=== PATIENT | female | born 1985 | race Two or more races ===

== ENCOUNTER → 2024-09-18 | Emergency (ER) | payer OTHER ==
[~2024-09-18] VITALS: Ht 152.4 cm; Wt 86.2 kg
[~2024-09-18] MED LIST: BENADRYL ALLERG25 MG PO; BENADRYL ALLERG50 MG PO; DIPHENHYDRAMINE HCL 50 MG/ML VIAL 1ML IV ONE; DIPHENHYDRAMINE HCL 50 MG/ML VIAL 1ML ONE; MEDROLPACK PO; METHYLPREDNISOLONE SOD SUCC 125 MG VIAL IV ONE; METHYLPREDNISOLONE SOD SUCC 125 MG VIAL ONE; NEURONTIN300 MG PO
== END | disposition home or self-care (01) ==
LOC: ER 19:44
DX: R21 Rash and other nonspecific skin eruption (principal); T78.40XA Allergy, unspecified, initial encounter; Z88.6 Allergy status to analgesic agent